=== PATIENT | female | born 1935 | race Caucasian/White ===

== ENCOUNTER 2017-11-03 06:19 | Day surgery (SDC) | payer MEDICARE ==
[~2017-11-03] VITALS: Ht 162.6 cm; Wt 51.5 kg
[2017-11-03] VITALS (38 sets, daily range): BP systolic 84–164; BP diastolic 47–99
[~2017-11-03 06:19] MED LIST: CARV-50 PO; CHOL10002 PO; CLOP75TA15 PO; FURO-150 PO; IBUP-1984 PO; LOSA25TA96 PO; SIMV40TA PO
[2017-11-03] MEDS ORDERED: normal saline 1000ml 1,000 ML IV PRN (06:50)
[2017-11-03 08:00] LABS: BASOPHILS % (AUTO) 0.6 % (0-1); EOSINOPHILS # (AUTO) 0.2 X10'3 (0-0.9); EOSINOPHILS % (AUTO) 3.1 % (0-6); HEMATOCRIT 44.5 % (35.0-45.0); HEMOGLOBIN 14.8 g/dl (12.0-16.0); LYMPHOCYTES # (AUTO) 0.7 X10'3 (1.1-4.8); LYMPHOCYTES % (AUTO) 11.7 % (21-51); MEAN CORPUSCULAR HEMOGLOBIN 31.9 PG (27.0-31.0); MEAN CORPUSCULAR HGB CONC 33.3 % (33.0-36.5); MEAN CORPUSCULAR VOLUME 95.9 FL (78-98); MEAN PLATELET VOLUME 8.7 FL (7.4-10.4); MONOCYTES # (AUTO) 0.5 X10'3 (0-0.9); MONOCYTES % (AUTO) 8.5 % (2-12); NEUTROPHILS # (AUTO) 4.7 X10'3 (1.8-7.7); NEUTROPHILS % (AUTO) 76.1 % (42-75); PLATELET COUNT 209 X10'3 (140-440); RED BLOOD COUNT 4.64 X10'6 (4.20-5.60); RED CELL DISTRIBUTION WIDTH 15.3 % (11.5-14.5); WHITE BLOOD COUNT 6.2 X10'3 (4.5-11.0)
[2017-11-03] MEDS ORDERED: LIDOcaine 1%/PF (10mg/ml) 5ml vial SQ ONE (08:15)
[2017-11-03] MEDS ORDERED: midazolam 2 mg/2 ml injection IV PRN (08:15)
[2017-11-03] MEDS ORDERED: heparin 1,000 UNITS/NS 500ml 500 ML ICATH ONE (08:15)
[2017-11-03] MEDS ORDERED: fentaNYL/PF 50MCG/1 ML 2ML syringe IV PRN (08:15)
[2017-11-03 08:17] LABS: ALBUMIN 3.4 G/DL (3.4-5.0); ANION GAP 8 (8-16); BLOOD UREA NITROGEN 21 MG/DL (7-18); BUN/CREATININE RATIO 23.3 (6.6-38.0); CALCIUM 8.3 MG/DL (8.5-10.1); CHLORIDE 106 MMOL/L (99-107); GLUCOSE 87 MG/DL (70-104); POTASSIUM 4.1 MMOL/L (3.5-5.1); SODIUM 140 MMOL/L (135-145); TOTAL CARBON DIOXIDE 26.5 MMOL/L (24-32); eGFR 60 ML/MIN
[2017-11-03] MEDS ORDERED: midazolam 2 mg/2 ml injection ONE (08:20)
[2017-11-03] MEDS ORDERED: LIDOcaine 1%/PF (10mg/ml) 5ml vial ONE (08:20)
[2017-11-03] MEDS ORDERED: fentaNYL/PF 50MCG/1 ML 2ML syringe ONE ×2 (08:21→09:31)
[2017-11-03] MEDS ORDERED: iohexol 300mg/ml 100ml inj. ONE (08:21)
[2017-11-03] MEDS ORDERED: heparin 1,000 UNITS/NS 500ml 500 ML ONE (08:21)
[2017-11-03] MEDS ORDERED: heparin 1,000unit/ml 10ml vial 10 ML ONE (08:33)
[2017-11-03] MEDS ORDERED: ondansetron/PF 4mg/2ml inj ONE (08:52)
[2017-11-03] MEDS ORDERED: ondansetron/PF 4mg/2ml inj IV ONE (08:55)
[2017-11-03] MEDS ORDERED: normal saline 1000ml 1,000 ML IV SCH (10:56)
== END 2017-11-03 19:06 | disposition home or self-care (01) ==
LOC: SSTAY O 06:19
PROVIDERS: ATTEND Radiology Diagnostic Radiology
DX: I70.201 Unspecified atherosclerosis of native arteries of extremities, right leg (principal); Z87.891 Personal history of nicotine dependence; Z72.89 Other problems related to lifestyle; Z88.6 Allergy status to analgesic agent; Z88.8 Allergy status to other drugs, medicaments and biological substances; Z79.899 Other long term (current) drug therapy; Z88.2 Allergy status to sulfonamides; Z86.73 Personal history of transient ischemic attack (TIA), and cerebral infarction without residual deficits
CPT/HCPCS: 36246; 36415; 75710; 76937; 80048; 85025; 85347; A6257; A6258; A6402; A6449; C1769; C1887; C1894; J1644; J2001; J2250; J2405; J3010; J7030; Q9967; 99152; 99153

== ENCOUNTER 2018-01-09 20:11 | Inpatient (IN) | payer MEDICARE, OTHER ==
[~2018-01-09] VITALS: Ht 160 cm; Wt 50.0 kg
[~2018-01-09 20:11] MED LIST changes: +DOBUTamine/D5W 500mg/250ml premix IV ONE; -IBUP-1984 PO; +NORepinephrine 1 mg/ml inj IV ONE
[2018-01-09] MEDS ORDERED: ipratropium/albuterol 3ml nebule NEB ONE (20:20)
[2018-01-09] MEDS ORDERED: furosemide inj 100 MG in normal saline 100ml IV soln 90 ML IV SCH (20:35)
[2018-01-09] MEDS: DOBUTamine-DoBUTrex 500mg/D5W 250 ML IV SCH ×2 (20:41→21:15)
[2018-01-09] MEDS ORDERED: heparin 10,000 units/1 ML INJ IV ONE ×2 (20:45→22:50)
[2018-01-09] MEDS ORDERED: heparin 10,000 units/1 ML INJ IV PRN ×2 (20:45→22:50)
[2018-01-09] MEDS ORDERED: nitroGLYCERIN 0.4mg SUBLingual tab SL PRN (20:45)
[2018-01-09] MEDS ORDERED: morphine 2 MG/ML inj. syringe IV ONE (20:45)
[2018-01-09] MEDS ORDERED: nitroGLYCERIN-Tridil 50MG/D5W 250 ML IV SCH (20:50)
[2018-01-09] MEDS ORDERED: PRAV80TA PO (20:58)
[2018-01-09] MEDS ORDERED: CARV-50 PO (20:58)
[2018-01-09] MEDS ORDERED: FURO80TA87 PO (20:58)
[2018-01-09] MEDS ORDERED: POTA10CA44 PO (20:58)
[2018-01-09] MEDS ORDERED: ASPI-1265 PO (20:58)
[2018-01-09] MEDS ORDERED: SACU1TAB PO (20:58)
[2018-01-09] MEDS ORDERED: NITR0.4T48 SL (20:58)
[2018-01-09] MEDS ORDERED: SPIR25TA PO (20:58)
[2018-01-09 21:01] LABS: ABG BASE EXCESS -5.6 mmol/L (-2.0-3.0); ABG HCO3 18.3 mmol/L (22.0-26.0); ABG OXYGEN SATURATION 94.9 % (95-98); ABG PCO2 (T) 29.4 mmHg (32.0-45.0); ABG PH (T) 7.409 (7.350-7.450); ABG PO2 (T) 75.8 mmHg (83-108); ALLEN'S TEST Positive; FCOHb 0.2 % (0.5-1.5); FLOW 12 L/min; FMetHb 0.3 % (0.3-1.12); FO2Hb 94.4 % (94-100); PATIENT TEMPERATURE 36.4; RESPIRATORY RATE (OBSERVED) 25 b/min; TOTAL HEMOGLOBIN 10.5 G/dl (12.0-16.0)
[2018-01-09 21:02] LABS: BASOPHILS % (AUTO) 0.2 % (0-1); EOSINOPHILS # (AUTO) 0.5 X10'3 (0-0.9); EOSINOPHILS % (AUTO) 3.8 % (0-6); HEMATOCRIT 31.8 % (35.0-45.0); HEMOGLOBIN 10.7 g/dl (12.0-16.0); LYMPHOCYTES # (AUTO) 0.5 X10'3 (1.1-4.8); LYMPHOCYTES % (AUTO) 4.5 % (21-51); MEAN CORPUSCULAR HEMOGLOBIN 31.1 PG (27.0-31.0); MEAN CORPUSCULAR HGB CONC 33.6 % (33.0-36.5); MEAN CORPUSCULAR VOLUME 92.8 FL (78-98); MEAN PLATELET VOLUME 8.3 FL (7.4-10.4); MONOCYTES # (AUTO) 0.4 X10'3 (0-0.9); MONOCYTES % (AUTO) 3.3 % (2-12); NEUTROPHILS # (AUTO) 10.7 X10'3 (1.8-7.7); NEUTROPHILS % (AUTO) 88.2 % (42-75); PLATELET COUNT 407 X10'3 (140-440); RED BLOOD COUNT 3.43 X10'6 (4.20-5.60); RED CELL DISTRIBUTION WIDTH 16.1 % (11.5-14.5); WHITE BLOOD COUNT 12.2 X10'3 (4.5-11.0)
[2018-01-09 21:17] LABS: PARTIAL THROMBOPLASTIN TIME 31 SECONDS (22-32); PROTHROMBIN TIME 10.7 SECONDS (9.0-12.0)
[2018-01-09 21:27] LABS: ALANINE AMINOTRANSFERASE 16 U/L (12-78); ALBUMIN 2.5 G/DL (3.4-5.0); ALBUMIN/GLOBULIN RATIO 0.7 (1.1-1.5); ALKALINE PHOSPHATASE 74 IU/L (46-116); ANION GAP 8 (8-16); ASPARTATE AMINO TRANSFERASE 11 U/L (10-37); BILIRUBIN,TOTAL 0.4 MG/DL (0.1-1.0); BLOOD UREA NITROGEN 47 MG/DL (7-18); BUN/CREATININE RATIO 43.9 (6.6-38.0); CALCIUM 8.2 MG/DL (8.5-10.1); CHLORIDE 101 MMOL/L (99-107); CREATININE 1.07 MG/DL (0.40-0.90); GLUCOSE 141 MG/DL (70-104); POTASSIUM 4.9 MMOL/L (3.5-5.1); SODIUM 133 MMOL/L (135-145); TOTAL CARBON DIOXIDE 23.6 MMOL/L (24-32); TOTAL PROTEIN 6.2 G/DL (6.4-8.2); eGFR 49 ML/MIN
[2018-01-09] MEDS: NORepinephrine 8mg/ 250ml NS 250 ML IV SCH (21:40)
[2018-01-09] MEDS ORDERED: morphine 4 MG/ML inj SYRINge IV PRN ×2 (22:50)
[2018-01-09] MEDS ORDERED: magnesium hydroxide 30ml (MOM) UD suspension PO PRN (22:50)
[2018-01-09] MEDS ORDERED: acetaminophen 325mg tablet PO PRN ×2 (22:50)
[2018-01-09] MEDS ORDERED: potassium Cl 40MEQ/250ML bag 250 ML IV PRN ×2 (22:50)
[2018-01-09] MEDS: K, MAG and/or Phos replacement - Verify level? MC SCH (22:50)
[2018-01-09] MEDS ORDERED: ondansetron/PF 4mg/2ml inj IV PRN (22:50)
[2018-01-09 23:30] LABS: COLOR,URINE YELLOW (Yellow); GLUCOSE, URINE NEGATIVE (Neg); KETONES,URINE NEGATIVE (Neg); LEUKOCYTE ESTERASE ,URINE MODERATE (Neg); NITRITES, URINE NEGATIVE (Neg); OCCULT BLOOD,URINE SMALL (Neg); PROTEIN,URINE NEGATIVE (Neg); UROBILINOGEN,URINE 0.2 E.U/dL (0.2-1.0)
[2018-01-09 23:36] LABS: CLARITY,URINE CLOUDY (Clear); UA COLLECTION TYPE FOLEY CATH
[2018-01-09 23:37] LABS: BACTERIA,URINE 3+ /HPF (Neg); SQUAMOUS EPITHELIAL CELL,UR FEW /LPF (FEW); WBC CLUMPS,URINE MODERATE /HPF (NEGATIVE); WBC,URINE 30-50 /HPF (0-4)
[2018-01-09] MEDS ORDERED: CefTRIAXone/D5W-Rocephin 1gm 50 ML IV ONE (23:45)
[2018-01-10] VITALS (23 sets, daily range): BP systolic 69–98; BP diastolic 40–61
[2018-01-10 03:45] LABS: PARTIAL THROMBOPLASTIN TIME 53 SECONDS (22-32)
[2018-01-10 06:38] LABS: BASOPHILS # (AUTO) 0.1 X10'3 (0-0.2); BASOPHILS % (AUTO) 0.5 % (0-1); EOSINOPHILS # (AUTO) 0.3 X10'3 (0-0.9); EOSINOPHILS % (AUTO) 1.8 % (0-6); HEMATOCRIT 31.5 % (35.0-45.0); HEMOGLOBIN 10.5 g/dl (12.0-16.0); LYMPHOCYTES # (AUTO) 0.5 X10'3 (1.1-4.8); LYMPHOCYTES % (AUTO) 2.9 % (21-51); MEAN CORPUSCULAR HEMOGLOBIN 31.4 PG (27.0-31.0); MEAN CORPUSCULAR HGB CONC 33.5 % (33.0-36.5); MEAN CORPUSCULAR VOLUME 93.7 FL (78-98); MEAN PLATELET VOLUME 9.1 FL (7.4-10.4); MONOCYTES # (AUTO) 0.6 X10'3 (0-0.9); MONOCYTES % (AUTO) 3.5 % (2-12); NEUTROPHILS # (AUTO) 14.6 X10'3 (1.8-7.7); NEUTROPHILS % (AUTO) 91.3 % (42-75); PLATELET COUNT 432 X10'3 (140-440); RED BLOOD COUNT 3.36 X10'6 (4.20-5.60); RED CELL DISTRIBUTION WIDTH 15.9 % (11.5-14.5)
[2018-01-10] MEDS ORDERED: spironolactone 25 MG tablet PO SCH (09:20)
[2018-01-10 09:23] LABS: PARTIAL THROMBOPLASTIN TIME 48 SECONDS (22-32)
[2018-01-10] MEDS: K, MAG and/or Phos replacement - Verify level? MC SCH (09:44)
[2018-01-10] MEDS: NORepinephrine 8mg/ 250ml NS 250 ML IV SCH (11:02)
[2018-01-10] MEDS ORDERED: morphine 2 MG/ML inj. syringe IV PRN ×2 (13:43→13:44)
[2018-01-10] MEDS ORDERED: potassium chloride 10mEq CAPSULE.SA PO SCH (20:00)
[2018-01-10] MEDS ORDERED: furosemide 40mg tablet PO SCH (20:00)
[2018-01-10] MEDS ORDERED: pravastatin 40mg tablet PO SCH (21:00)
[2018-01-10] MEDS ORDERED: vitamin D (cholecalciferol) 1,000 unit tablet PO SCH (21:00)
[2018-01-11] MEDS ORDERED: aspirin 81mg tab.chew PO SCH (08:00)
== END 2018-01-10 13:05 | disposition expired ==
LOC: ER 20:11 → ED HOLD 22:47 → ICU 2S 01-10 07:38 → EDBEDREQTM 01-10 07:40 → EDBEDREQDT 01-10 07:40 → CANBEDREQ 01-10 19:49
PROVIDERS: ADMIT Internal Medicine; ATTEND Internal Medicine Critical Care Medicine
PROC: 5A09357 Assistance with Respiratory Ventilation, Less than 24 Consecutive Hours, Continuous Positive Airway Pressure (ICD-10-PCS; principal; 2018-01-09)
PROC: 02HV33Z Insertion of Infusion Device into Superior Vena Cava, Percutaneous Approach (ICD-10-PCS; 2018-01-09)
DX: I22.2 Subsequent non-ST elevation (NSTEMI) myocardial infarction (principal); I50.23 Acute on chronic systolic (congestive) heart failure; J96.21 Acute and chronic respiratory failure with hypoxia; R57.0 Cardiogenic shock; I21.4 Non-ST elevation (NSTEMI) myocardial infarction; N30.90 Cystitis, unspecified without hematuria; I45.4 Nonspecific intraventricular block; I11.0 Hypertensive heart disease with heart failure; M19.90 Unspecified osteoarthritis, unspecified site; E78.5 Hyperlipidemia, unspecified; I73.9 Peripheral vascular disease, unspecified; I25.5 Ischemic cardiomyopathy; J44.9 Chronic obstructive pulmonary disease, unspecified; I48.0 Paroxysmal atrial fibrillation; E78.00 Pure hypercholesterolemia, unspecified; I25.10 Atherosclerotic heart disease of native coronary artery without angina pectoris; Z66 Do not resuscitate; I25.2 Old myocardial infarction; Z95.810 Presence of automatic (implantable) cardiac defibrillator; Z95.5 Presence of coronary angioplasty implant and graft; Z88.5 Allergy status to narcotic agent; Z88.2 Allergy status to sulfonamides; Z88.8 Allergy status to other drugs, medicaments and biological substances; Z79.82 Long term (current) use of aspirin; Z79.899 Other long term (current) drug therapy; Z86.73 Personal history of transient ischemic attack (TIA), and cerebral infarction without residual deficits; Z87.11 Personal history of peptic ulcer disease; Z87.891 Personal history of nicotine dependence
CPT/HCPCS: 36415; 36556; 36600; 71045; 80053; 81001; 82803; 83605; 83880; 84145; 84484; 85018; 85025; 85379; 85610; 85730; 87040; 87077; 87088; 87186; 93308; 94640; 94660; 94760; 96365; 96368; 99285; A6213; A6253; A6449; C1751; C1758; J0696; J1250; J1644; J2270; J3490; J7030